=== PATIENT | male | born 1990 | race Caucasian/White ===

== ENCOUNTER 2021-01-14 17:38 | Emergency (ER) | payer MEDICAID ==
[~2021-01-14] VITALS: Ht 172.7 cm; Wt 140.5 kg
[2021-01-14] MEDS ORDERED: ketorolac tromethamine 15mg/ml inj. IM ONE (18:40)
[2021-01-14] MEDS ORDERED: METH-360 PO (18:42)
[2021-01-14 19:27] VITALS: BP 119/78
== END 2021-01-14 19:28 | disposition home or self-care (01) ==
LOC: ER 17:38
DX: S50.01XA Contusion of right elbow, initial encounter (principal); S16.1XXA Strain of muscle, fascia and tendon at neck level, initial encounter; M25.521 Pain in right elbow; M54.2 Cervicalgia; M25.512 Pain in left shoulder; Z88.0 Allergy status to penicillin; Z79.899 Other long term (current) drug therapy; V89.2XXA Person injured in unspecified motor-vehicle accident, traffic, initial encounter; Y93.89 Activity, other specified; Y92.89 Other specified places as the place of occurrence of the external cause; Y99.8 Other external cause status
CPT/HCPCS: 96372; 99283; J1885

== ENCOUNTER 2023-06-11 15:07 | Emergency (ER) | payer MEDICAID ==
[~2023-06-11] VITALS: Ht 167.6 cm; Wt 130.4 kg
[~2023-06-11 15:07] MED LIST: METH-360 PO
[2023-06-11 15:35] VITALS: TEMP 98.2
[2023-06-11] MEDS ORDERED: TETanus/Pertussis (Acell)/Diphther VAC/PF (Tdap-Adult) 0.5ml syringe IMVAC ONE (18:35)
[2023-06-11] MEDS ORDERED: sulfamethoxazole/trimethoprim DS (800/160mg) tablet PO ONE (18:35)
[2023-06-11] MEDS ORDERED: cephalexin 500mg capsule PO ONE (18:35)
[2023-06-11 18:49] VITALS: BP 138/93; PULSE 76; RESP 18; O2SAT 98
[2023-06-11] MEDS ORDERED: SULF1TAB49 PO (18:54)
[2023-06-11] MEDS ORDERED: CEPH-585 PO (18:54)
== END 2023-06-11 19:07 | disposition home or self-care (01) ==
LOC: ER 15:07
DX: L03.114 Cellulitis of left upper limb (principal); S61.512A Laceration without foreign body of left wrist, initial encounter; Z88.0 Allergy status to penicillin; Z79.2 Long term (current) use of antibiotics; Z79.899 Other long term (current) drug therapy; W22.8XXA Striking against or struck by other objects, initial encounter; Y93.89 Activity, other specified; Y92.89 Other specified places as the place of occurrence of the external cause; Y99.8 Other external cause status
CPT/HCPCS: 87070; 87077; 87185; 87186; 90471; 90715; 99283